=== PATIENT | female | born 1955 | race Native Hawaiian/Other Pacific Islander ===

== ENCOUNTER 2017-08-17 10:02 | Outpatient (CLI) | payer BC | END 2017-08-17 19:08 | disposition home or self-care (01) | LOC: MAMMO 10:02 | DX: Z12.31 Encounter for screening mammogram for malignant neoplasm of breast (principal) ==

== ENCOUNTER 2017-11-05 13:53 | Emergency (ER) | payer BC ==
[~2017-11-05] VITALS: Ht 152.4 cm; Wt 70.3 kg
[2017-11-05] MEDS ORDERED: AMOX500T5 PO (14:09)
[2017-11-05] MEDS ORDERED: NORCO 10/325***1 TAB PO (14:11)
[2017-11-05 14:47] LABS: PLATELET COUNT 230 K/uL (152-353)
[2017-11-05 15:04] LABS: POTASSIUM 3.5 mmol/L (3.6-5.2); SODIUM 139 mmol/L (136-145)
[2017-11-05 17:29] VITALS: BP 126/74; TEMP 98.6
== END 2017-11-05 17:30 | disposition home or self-care (01) ==
LOC: ED 13:53
DX: M47.892 Other spondylosis, cervical region (principal); E04.1 Nontoxic single thyroid nodule; M43.6 Torticollis
CPT/HCPCS: 80053; 85027; 87081; 87804; 87880; 96372; 99283; J1885; J2360

== ENCOUNTER 2017-12-14 07:35 | Outpatient (CLI) | payer BC ==
[~2017-12-14 07:35] MED LIST: AMOX500T5 PO; NORCO 10/325***1 TAB PO
== END 2017-12-14 19:21 | disposition home or self-care (01) ==
LOC: LABW 07:35
DX: C73 Malignant neoplasm of thyroid gland (principal); E89.0 Postprocedural hypothyroidism
CPT/HCPCS: 36415; 84443

== ENCOUNTER 2018-03-07 13:39 | Outpatient (CLI) | payer BC | END 2018-03-07 19:41 | disposition home or self-care (01) | LOC: LABW 13:39 | DX: E89.0 Postprocedural hypothyroidism (principal) | CPT/HCPCS: 36415; 84443 ==

== ENCOUNTER 2018-05-13 11:07 | Outpatient (CLI) | payer BC | END 2018-05-13 19:46 | disposition home or self-care (01) | LOC: US 11:07 | DX: C73 Malignant neoplasm of thyroid gland (principal) ==

== ENCOUNTER 2018-11-26 09:58 | Outpatient (CLI) | payer BC | END 2018-11-26 23:41 | disposition home or self-care (01) | LOC: US 09:58 | DX: C73 Malignant neoplasm of thyroid gland (principal); E89.0 Postprocedural hypothyroidism ==

== ENCOUNTER 2018-12-30 08:48 | Outpatient (CLI) | payer BC | END 2018-12-30 19:55 | disposition home or self-care (01) | LOC: MAMMO 08:48 | DX: Z12.31 Encounter for screening mammogram for malignant neoplasm of breast (principal) ==

== ENCOUNTER 2019-02-13 10:51 | Outpatient (CLI) | payer BC | END 2019-02-13 19:20 | disposition home or self-care (01) | LOC: LABW 10:51 | DX: C73 Malignant neoplasm of thyroid gland (principal) | CPT/HCPCS: 36415; 84443; 86800 ==

== ENCOUNTER 2019-05-13 10:53 | Outpatient (CLI) | payer BC | END 2019-05-13 19:11 | disposition home or self-care (01) | LOC: LABW 10:53 | DX: E89.0 Postprocedural hypothyroidism (principal); C73 Malignant neoplasm of thyroid gland | CPT/HCPCS: 36415; 84436; 84443 ==

== ENCOUNTER 2019-08-18 16:42 | Outpatient (CLI) | payer BC | END 2019-08-18 21:53 | disposition home or self-care (01) | LOC: LAB 16:42 → RAD 16:42 → LAB 21:53 | DX: R94.6 Abnormal results of thyroid function studies (principal) | CPT/HCPCS: 36415; 84436; 84443; 86800 ==

== ENCOUNTER 2020-01-15 15:12 | Outpatient (CLI) | payer BC | END 2020-01-15 21:32 | disposition home or self-care (01) | LOC: MAMMO 15:12 | DX: Z12.31 Encounter for screening mammogram for malignant neoplasm of breast (principal); Z13.820 Encounter for screening for osteoporosis; N95.8 Other specified menopausal and perimenopausal disorders ==

== ENCOUNTER 2020-01-23 06:47 | Outpatient (CLI) | payer BC | END 2020-01-23 20:10 | disposition home or self-care (01) | LOC: LABW 06:47 | DX: C73 Malignant neoplasm of thyroid gland (principal) | CPT/HCPCS: 36415; 84436; 84443; 86800 ==

== ENCOUNTER 2020-08-23 14:36 | Outpatient (CLI) | payer BC | END 2020-08-23 19:14 | disposition home or self-care (01) | LOC: MAMMO 14:36 | DX: R92.2 Inconclusive mammogram (principal) | CPT/HCPCS: G0279 ==

== ENCOUNTER 2020-08-24 15:59 | Outpatient (CLI) | payer BC | END 2020-08-24 19:16 | disposition home or self-care (01) | LOC: US 15:59 | DX: R92.2 Inconclusive mammogram (principal) ==

== ENCOUNTER 2022-04-12 11:36 | Outpatient (CLI) | payer BC, OTHER | END 2022-04-12 19:14 | disposition home or self-care (01) | LOC: MAMMO 11:36 | PROVIDERS: ATTEND Internal Medicine | DX: Z12.31 Encounter for screening mammogram for malignant neoplasm of breast (principal); Z13.820 Encounter for screening for osteoporosis; N95.8 Other specified menopausal and perimenopausal disorders ==

== ENCOUNTER 2022-08-29 09:04 | Outpatient (CLI) | payer OTHER, BC | END 2022-08-29 20:30 | disposition home or self-care (01) | LOC: RESP 09:04 | PROVIDERS: ATTEND Nurse Practitioner Family | DX: Z01.818 Encounter for other preprocedural examination (principal) ==

== ENCOUNTER 2023-04-16 11:03 | Outpatient (CLI) | payer OTHER, BC | END 2023-04-16 19:24 | disposition home or self-care (01) | LOC: MAMMO 11:03 | PROVIDERS: ATTEND Obstetrics & Gynecology | DX: Z13.820 Encounter for screening for osteoporosis (principal); Z12.31 Encounter for screening mammogram for malignant neoplasm of breast; M81.0 Age-related osteoporosis without current pathological fracture ==

== ENCOUNTER 2023-04-27 12:24 | Outpatient (CLI) | payer OTHER, BC | END 2023-04-27 18:55 | disposition home or self-care (01) | LOC: RAD 12:24 | PROVIDERS: ATTEND Physician Assistant | DX: M79.644 Pain in right finger(s) (principal) ==